=== PATIENT | female | born 1940 | race Caucasian/White ===

== ENCOUNTER 2023-10-19 08:49 | Emergency (ER) | payer MEDICARE, SELFPAY ==
[2023-10-19 09:02] VITALS: BP 157/104
[2023-10-19 09:37] LABS: % Basophils 0.4 % (0-2); % Eosinophils 0.9 % (0-6); % Immature Granulocytes 0.3 % (0-0.5); % Lymphocytes 14.5 % (20.5-51.1); % Monocytes 11.1 % (1.7-9.3); % Neutrophils 72.8 % (42.2-75.2); Absolute Eosinophils 0.1 10^3/uL (0-0.7); Absolute Lymphocytes 1.1 10^3/uL (1.2-3.4); Absolute Monocytes 0.8 10^3/uL (0.1-0.6); Absolute Neutrophils 5.5 10^3/uL (1.4-6.5); Hematocrit 35.4 % (37.0-47.0); Hemoglobin 12.1 g/dL (12.0-16.0); Mean Corp Hgb Conc. 34.2 g/dL (33.0-37.0); Mean Corpuscular Volume 87.8 fL (81.0-99.0); Mean Platelet Volume 10.8 fL (7.4-10.4); Nucleated Red Blood Cells % 0 %; Platelet Count 243 10^3/uL (130-400); Red Blood Cell Count 4.03 10^6/uL (4.20-5.40); Red Cell Dist. Width 13.5 % (11.5-14.5); White Blood Cell Count 7.6 10^3/uL (4.8-10.8)
[2023-10-19 09:54] LABS: Blood Urea Nitrogen 29 mg/dl (7-17); Calcium 9.4 mg/dl (8.4-10.2); Carbon Dioxide 26 mmol/L (22-30); Chloride 107 mmol/L (98-107); Glucose 97 mg/dl (70-99); Lipase 46 U/L (23-300); Sodium 141 mmol/L (135-145); eGFR > 60.00
--- NOTE | 2023-10-19 10:41 | ED.GENMED ---
History of Present Illness
General
Chief Complaint: Bowel Problem
Source: patient
Exam Limitations: none
Time Seen by Provider: 10/19/23 09:08
Nursing documentation reviewed up to this point in time: agreed with
Travel History
Have you had any contact with someone who has COVID-19?: No
Do you have any symptoms of coronavirus? Fever > 100 degrees, chills, cough, shortness of breath, sore throat, loss of taste or smell, muscle aches, or headache?: No
History of Present Illness
History of Present Illness:
82-year-old female past medical history of GERD previous small bowel obstruction hyperlipidemia presenting to the emergency department today with concerns of worsening abdominal distention and some vague abdominal discomfort and lack of bowel
movements over the past week. She has been taking medications to help have a bowel movement without relief. Denies additional concerns
Past History
Past History
ED Past Medical History: Cancer (Breast) and Hypercholesterolemia
ED Past Surgical History: Orthopedic and Other (Mastectomy)
Social History
Tobacco: Non-smoker
Alcohol: None
Drug: None
Review of Systems
Review of Systems
Allergies reviewed?: Yes
All Other Systems: ROS reviewed and negative except as documented in HPI and ROS
Phy Exam
Physical Exam
Physical Exam:
GENERAL: Alert , in no apparent distress
EYE: pupils equal and reactive
NECK: Supple, no significant adenopathy.
ENT: o/p clr, mmm.
CARDIAC: Regular rate and rhythm .
LUNGS: Clear breath sounds bilaterally, no acute respiratory distress, no wheezes/rales/rhonchi
ABDOMEN: Mild abdominal distention mild discomfort throughout the abdomen.
NEUROLOGICAL: Alert and oriented, no focal neuro deficits
SKIN: Warm and dry, skin intact.
MUSCULOSKELETAL: No edema, well perfused.
PSYCH: Normal and appropriate interaction.
Course
Orders/Labs/Results
Orders:
Orders
10/19/23 09:29
CT Abd/Pel (IV only)-[facility] only Urgent
Comment:
Reason For Exam: diffuse abd pain hx of SBO
10/19/23 09:32
Basic Metabolic Panel Urgent
Complete Blood Count/With Diff Urgent
Lipase Urgent
10/19/23 10:47
Urinalysis Reflex To Culture Urgent
Date Specimen was Collected: 10/19/23
Time Specimen was Collected: 10:37
Abnormal Lab Results
10/19/23
09:32
RBC 4.03 L 10^6/uL
(4.20-5.40)
Hct 35.4 L %
(37.0-47.0)
MPV 10.8 H fL
(7.4-10.4)
Absolute Lymphs (auto) 1.1 L 10^3/uL
(1.2-3.4)
Absolute Monos (auto) 0.8 H 10^3/uL
(0.1-0.6)
Lymphocytes % 14.5 L %
(20.5-51.1)
Monocytes % 11.1 H %
(1.7-9.3)
BUN 29 H mg/dl
(7-17)
10/19/23 09:32
10/19/23 09:32
Vital Signs
Initial and Last Documented VS:
Initial Vital Signs
Temp Pulse Resp BP Pulse Ox
97.7 F 78 18 157/104 96
10/19/23 09:02 10/19/23 09:02 10/19/23 09:02 10/19/23 09:02 10/19/23 09:02
Last Documented Vital Signs
Temp Pulse Resp BP Pulse Ox
97.7 F 78 18 157/104 96
10/19/23 09:02 10/19/23 09:02 10/19/23 09:02 10/19/23 09:02 10/19/23 09:02
MDM/Problems Addressed
MDM/Problems Addressed:
82-year-old female presenting to the emerged today with concerns of abdominal distention and lack of bowel movements over the past week. Has a history of small bowel obstruction. On arrival vital signs are normal patient in no obvious distress but
does have mild tenderness throughout the abdomen as well as associated distention. Plan for CT scan for further assessment. CT scan showing constipation but no emergent findings otherwise. Patient generally well-appearing throughout ER stay
stable for outpatient management with bowel regimen. Return precautions given.
*Critical Care Note
Total Time (30-74mins, 75-104mins- exclusive of procedures): Not Applicable
ED Attending Note
-
Portions of this chart may have been created with voice recognition software.� Occasional wrong word or��sound alike� substitutions may have occurred due to the inherent limitations of voice recognition software.
Discharge Plan
Departure
Patient Disposition: Home (Routine Discharge)
Date of Disposition: 10/19/23
Time of Disposition: 12:49
Patient with high blood pressure during this ER visit?: No
Condition: Good
Covid-19: Not Applicable
Discharge Problem:
Constipation
Instructions: Constipation, Adult (DC)
Prescriptions:
New
docusate sodium [Colace] 100 mg capsule
100 mg PO DAILY Qty: 14 0RF
Fleet Enema 19-7 gram/118 mL enema
197 ml ID ONCE Qty: 266 0RF
No Action
atorvastatin 40 MG tablet
40 mg PO DAILY
anastrozole 1 mg Tablet
1 mg PO DAILY
famotidine 20 mg Tablet
20 mg PO . DIRECTED
Referrals:
Gabriela Patel MD [Family Provider] -
Activity Restrictions/Additional Instructions:
You came to the emergency department today with concerns of abdominal discomfort and lack of bowel movements. You are found to be constipated on CT scan. Please take the new bowel regimen and follow-up closely with the primary care doctor. Return
to the emergency department for any worsening, new or concerning symptoms
Interventions
Interventions:
*Risk Screen - Suicide Last Done: 10/19/23 09:35
*General Assessment Last Done: 10/19/23 09:35
*Neglect/Abuse Screening Last Done: 10/19/23 09:35
ED- Fall Risk Assessment Last Done: 10/19/23 09:35
*ED COVID-19 Vaccine History Last Done: 10/19/23 09:02
KT-Vvbilu-Slzzffozlb Assessment Last Done: 10/19/23 09:35
Discharge Date and Time
Print Language: SINHALA
[2023-10-19 11:07] LABS: Urine Albumin Trace (Neg - Trace); Urine Bilirubin Negative (Negative); Urine Character Clear (Clear); Urine Color Yellow; Urine Glucose Negative (Negative); Urine Ketone Negative (Negative); Urine Leukocyte Negative (Negative); Urine Nitrite Negative (Negative); Urine Occult Blood Negative (Negative); Urine Urobilinogen Negative (Neg - 1+)
== END 2023-10-19 13:22 | disposition home or self-care (01) ==
LOC: EMR 08:49
PROVIDERS: Physician Assistant; EMERGENCY PHYSICIAN Emergency Medicine; FAMILY PHYSICIAN Internal Medicine
DX: K59.00 Constipation, unspecified (principal); R14.0 Abdominal distension (gaseous); K21.9 Gastro-esophageal reflux disease without esophagitis; E78.00 Pure hypercholesterolemia, unspecified; Z85.3 Personal history of malignant neoplasm of breast
CPT/HCPCS: 99284; 74177; 80048; 81003; 83690; 85025; Q9967

== ENCOUNTER → 2024-01-30 11:16 | Outpatient (REF) | payer MEDICARE, SELFPAY | LOC: HWWDC 11:16 | PROVIDERS: ATTENDING PHYSICIAN Internal Medicine | DX: Z12.31 Encounter for screening mammogram for malignant neoplasm of breast (principal) | CPT/HCPCS: 77063; 77067 ==

== ENCOUNTER → 2024-04-07 13:49 | Outpatient (REF) | payer MEDICARE, SELFPAY ==
[2024-04-07 15:23] LABS: ALT (SGPT) 19 U/L (0-35); AST (SGOT) 24 U/L (14-36); Alkaline Phosphatase 71 U/L (38-126); Blood Urea Nitrogen 36 mg/dl (7-17); Calcium 9.5 mg/dl (8.4-10.2); Carbon Dioxide 24 mmol/L (22-30); Chloride 107 mmol/L (98-107); Glucose 122 mg/dl (70-99); Potassium 4.6 mmol/L (3.5-5.1); Sodium 141 mmol/L (135-145); Total Bilirubin 0.3 mg/dl (0.2-1.3); Total Protein 6.3 g/dl (6.3-8.2); eGFR 55.21
== END ==
LOC: REG 13:49
PROVIDERS: ATTENDING PHYSICIAN Physician Assistant
DX: R10.32 Left lower quadrant pain (principal)
CPT/HCPCS: 36415; 80053

== ENCOUNTER → 2024-04-08 14:25 | Outpatient (REF) | payer MEDICARE, SELFPAY | LOC: RAD 14:25 | PROVIDERS: ATTENDING PHYSICIAN Physician Assistant; FAMILY PHYSICIAN Internal Medicine | DX: R10.32 Left lower quadrant pain (principal); R10.9 Unspecified abdominal pain | CPT/HCPCS: 74177; Q9967 ==

== ENCOUNTER 2024-12-08 06:23 | Day surgery (SDC) | payer OTHER, SELFPAY | END 2024-12-08 11:17 | disposition home or self-care (01) | LOC: GI 06:23 | PROVIDERS: ATTENDING PHYSICIAN Internal Medicine | DX: R13.10 Dysphagia, unspecified (principal); K44.9 Diaphragmatic hernia without obstruction or gangrene; K22.2 Esophageal obstruction; Q39.9 Congenital malformation of esophagus, unspecified; K31.89 Other diseases of stomach and duodenum | CPT/HCPCS: 43239; 88305; 88342 ==

== ENCOUNTER → 2025-01-04 08:35 | Outpatient (REF) | payer OTHER, SELFPAY | LOC: RSP 08:35 | PROVIDERS: ATTENDING PHYSICIAN Internal Medicine | DX: R06.09 Other forms of dyspnea (principal) | CPT/HCPCS: 88738; 94010; 94727; 94729 ==

== ENCOUNTER 2025-01-31 11:29 | Outpatient (RCR) | payer OTHER, SELFPAY | END 2025-01-31 23:59 | disposition home or self-care (01) | LOC: RPT 11:29 | PROVIDERS: ATTENDING PHYSICIAN Hospitalist; FAMILY PHYSICIAN Internal Medicine | DX: M25.552 Pain in left hip (principal); Z73.6 Limitation of activities due to disability; R26.89 Other abnormalities of gait and mobility; M62.81 Muscle weakness (generalized); M79.605 Pain in left leg | CPT/HCPCS: 97010; 97110; 97112; 97162 ==

== ENCOUNTER → 2025-02-18 14:31 | Outpatient (REF) | payer OTHER, SELFPAY | LOC: HWWDC 14:31 | PROVIDERS: ATTENDING PHYSICIAN Internal Medicine | DX: Z12.31 Encounter for screening mammogram for malignant neoplasm of breast (principal) | CPT/HCPCS: 77063; 77067 ==